=== PATIENT | male | born 2005 | race Caucasian/White ===

== ENCOUNTER 2024-09-07 07:49 | Emergency (ER) | payer MEDICAID ==
[~2024-09-07] VITALS: Ht 180.3 cm; Wt 100.0 kg
[2024-09-07 07:52] VITALS: O2SAT 98
[2024-09-07] MEDS: ONDANSETRON 4MG ODT PO ONE (08:25)
[2024-09-07 08:28] LABS: BASOPHILS % 0.5 % (0.0-2.0); EOSINOPHILS % 0.8 % (0.0-5.0); HEMATOCRIT. 51.3 % (42.0-52.0); HEMOGLOBIN. 17.3 g/dL (14.0-18.0); LYMPHOCYTES % 18.2 % (20.0-50.0); MEAN PLATELET VOLUME 11.1 fl (7.4-10.4); MONOCYTES % 4.4 % (2.0-8.0); NEUTROPHILS % 76.1 % (40.0-76.0); PLATELET 186 x1000/uL (130-400); RED BLOOD CELL COUNT 5.79 mill/uL (4.7-6.1); RED CELL DISTRIBUTION WIDTH 13.6 % (11.6-14.6)
[2024-09-07] MEDS: DIPHENHYDRAMINE 50MG/ML VIAL IV ONE (08:33)
[2024-09-07] MEDS: KETOROLAC 30MG/ML VIAL IV ONE (08:33)
[2024-09-07 08:43] LABS: CREATININE 0.9 mg/dL (0.6-1.3); UREA NITROGEN BLOOD 9 mg/dL (9-23)
[2024-09-07 08:45] LABS: ASPARTATE AMINOTRANSFERASE 62 IU/L (<34); BILIRUBIN DIRECT 0.2 mg/dL (<=3.0); BILIRUBIN TOTAL 0.7 mg/dL (0.1-1.0); PROTEIN TOTAL 8.0 g/dL (6.0-8.3)
[2024-09-07 10:21] VITALS: BP 117/66; PULSE 66; RESP 18; TEMP 36.7; O2SAT 99
== END 2024-09-07 10:26 | disposition home or self-care (01) ==
LOC: ER 07:49
DX: G44.209 Tension-type headache, unspecified, not intractable (principal)
CPT/HCPCS: 99285; 96374; 70450; 96375; 80076; 80048; 85025; 36415; J1885; Q0162; J1200